=== PATIENT | male | born 1950 | race Caucasian/White ===

== ENCOUNTER 2025-09-16 16:16 | Emergency (ER) | payer OTHER ==
[~2025-09-16] VITALS: Ht 177.8 cm; Wt 59.7 kg
--- NOTE | 2025-09-16 16:31 | ECG ---
[facility] Test Date: 2025-09-16 Test Time: 16:29:36 Pat Name: SUSANA WILKS Department: ED Room: Gender: M [employer]: gp : 1950 Requested By: EMERGENCY EMERGENCY Order Number: [id number] Reading MD: Nba Fowler Measurements Intervals [place] Rate: 119 P: 73 [place]: 150 QRS: -11 QRSD: 93 T: -2 QT: 331 QTc: 466 Interpretive Statements Sinus tachycardia Borderline T abnormalities, inferior leads Electronically Signed On 09-22-2025 14:12:00 PDT by Nba Fowler Please click the below link to view image of tracing.
--- NOTE | 2025-09-16 16:41 | ED.PDOC ---
GI ASSESSMENT HPI Comments 74 y/o M, with PMHx of pancreatic cancer presents to the ED for CC of abdominal pain. Patient reports, he was relayed to the ED by his PCP for possible bowel obstruction d/t not having a bowel movement in [id number]. Patient relays, have associated symptoms of nausea and vomiting and c/o 10/10 diffuse abdominal pain. Patient denies fever, chills, melena, or hematemesis. No other symptoms or modifying factors are present at this time. Chief Complaint: Abdominal Pain Time Seen by MD: 16:35 Reviewed Notes: Nurses Notes, Medications, Allergies Allergies: Coded Allergies: Penicillins (Verified Allergy, Unknown, 09/16/25) Information Source: Patient Mode of Arrival: Ambulatory Timing: Days Duration: Since onset Prehospital treatment: None Vomitus: Watery Stool: Impaction Severity: Moderate Recent: None Recent Hx of: None Pain Location: Diffuse Modifying Factors: Nothing Associated sign and symptoms: Nausea, Vomiting, Constipation, Abdominal Pain Past Medical History PAST MEDICAL HISTORY: Denies Surgical History: Denies all surgeries Family History Family History: Unknown Social History Smoker: Non-Smoker Alcohol: Denies ETOH Use Drugs: Denies Drug Use Lives In: Home Constitutional: denies: chills, diaphoresis, fatigue, fever, malaise, sweats, weakness, others EENTM: denies: blurred vision, double vision, ear bleeding, ear discharge, ear drainage, ear pain, ear ringing, eye pain, eye redness, hearing loss, mouth pain, mouth swelling, nasal discharge, nose bleeding, nose congestion, nose pain, photophobia, tearing, throat pain, throat swelling, voice changes, others Respiratory: denies: cough, hemoptysis, orthopnea, SOB at rest, shortness of breath, SOB with excertion, stridor, wheezing, others Cardiovascular: denies: chest pain, dizzy spells, diaphoresis, Dyspnea on exertion, edema, irregular heart beat, left arm pain, lightheadedness, palpitations, PND, syncope, others Gastrointestinal: reports: abdominal pain, constipated, nausea; denies: abdomen distended, blood streaked bowels, diarrhea, dysphagia, difficulty swallowing, hematemesis, melena, poor appetite, poor fluid intake, rectal bleeding, rectal pain, vomiting, others Genitourinary: denies: burning, dysuria, flank pain, frequency, hematuria, incontinence, penile discharge, penile sore, pain, testicle pain, testicle swelling, urgency, others Neurological: denies: dizziness, fainting, headache, left sided numbness, left sided weakness, numbness, paresthesia, pre-existing deficit, right sided numbness, right sided weakness, seizure, speech problems, tingling, tremors, weakness, others Musculoskeletal: denies: back pain, gout, joint pain, joint swelling, muscle pain, muscle stiffness, neck pain, others Integumetry: denies: bruises, change in color, change in hair/nails, dryness, laceration, lesions, lumps, rash, wounds, others Allergic/Immunocompromised: denies: Difficulty Healing, Frequent Infections, Hives, Itching, others Hematologic/Lymphatic: denies: anemia, blood clots, easy bleeding, easy bruising, swollen glands, others Endocrine: denies: excessive hunger, excessive sweating, excessive thirst, excessive urination, flushing, intolerance to cold, intolerance to heat, unexplained weight gain, unexplained weight loss, others Psychiatric: denies: anxiety, bipolar disorder, depression, hopeless, panic disorder, schizophrenia, sleepless, suicidal, others All Other Systems: Reviewed and Negative Physical Exam General Appearance: Moderate Distress, Thin HEENT: Normal ENT Inspection, Pharynx Normal, TMs Normal Neck: Full Range of Motion, Non-Tender, Normal, Normal Inspection Respiratory: Chest Non-Tender, Lungs Clear, No Accessory Muscle Use, No Respiratory Distress, Normal Breath Sounds Cardiovascular: No Edema, No JVD, No Murmur, No Gallop, Normal Peripheral Pulses, Regular Rate/Rhythm Breast Exam: Deferred Gastrointestinal: Diffuse, No Organomegaly, No Pulsatile Mass, Normal Bowel Sounds, Soft, Tenderness Genitalia: Deferred Pelvic: Deferred Rectal: Deferred Extremities: No calf tenderness, Normal capillary refill, No pedal edema Musculoskeletal : Apperance: Normal Neurologic: Alert, 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 Was a procedure done?: No GI differential Dx Differential Diagnosis: Gastritis/PUD, Gastroenteritis, Bacterial, Viral X-Ray, Labs, Meds, VS Vital Signs Date Time Temp Pulse Resp B/P (MAP) Pulse Ox O2 Delivery O2 Flow Rate FiO2 09/16/25 16:42 119 09/16/25 16:29 119 09/16/25 16:18 97.9 123 16 168/116 95 97.9 Lab Test 09/16/25 17:02 Range/Units Sodium Level 139 136-145 mmol/L Potassium Level 3.8 3.5-5.1 mmol/L Chloride Level 101 98-107 mmol/L Carbon Dioxide Level 29 20-31 mmol/L Anion Gap 9 5-15 Blood Urea Nitrogen 8 L 9-23 mg/dL Creatinine 0.68 L 0.700-1.30 mg/dL Glomerular Filtration Rate Calc 99 >90 mL/min BUN/Creatinine Ratio 11.8 10.0-20.0 Serum Glucose 122 H 74-106 mg/dL Calcium Level 10.3 8.7-10.4 mg/dL Total Bilirubin 1.0 0.2-1.0 mg/dL Aspartate Amino Transferase (AST) 32 13-40 U/L Alanine Aminotransferase (ALT) 36 7-40 U/L Alkaline Phosphatase 193 H 46-116 U/L Total Protein 7.9 5.7-8.2 g/dL Albumin 4.5 3.2-4.8 g/dL Lipase 30 12-53 U/L CAT scan of the abdomen and pelvis shows: IMPRESSION: 1. Abnormal pancreatic body mass most likely compatible with a pancreatic adenocarcinoma measuring 4.1 x 5.9 cm. No pancreatic ductal dilation. Recommend follow-up MR versus CT pancreatic protocol. 2. Small volume ascites. Prostatomegaly. 3. Inconspicuous oval-shaped pulmonary nodules in the left lung base adjacent to the aorta measuring 1.3 cm and pulmonary metastasis not excluded. 4. Superimposed trace left-sided pleural effusion and possible infectious bronchiolitis. The chemistry panel is within normal limits. The patient is being admitted to the hospitalist The CBC is pending IV Hep-Lock was established The patient is given Zofran 4 mg IV push The patient is given Dilaudid 0.5 mg IV push Images Reviewed?: Images reviewed and evaluated by me Time of 1ST Reevaluation: 17:05 Reevaluation 1ST: Unchanged Patient Education/Counseling: Diagnosis, Treatment, Prognosis Family Education/Counseling: No Family Present SEPSIS Sepsis Screen Date sepsis recognized/suspect: Sep 16, 2025 Time Sepsis recognized/suspect: 1621 Recent Procedure: No On Antibiotic Therapy: No Respiratory Rate >20: No Heart Rate >90: Yes Temp<36 C (96.8 F) or >38.3 C: No SBP <90 or MAP <65 mmHG: No New Acute Mental Status Change: No Is the patient on CPAP, BIPAP,: No Physician Orders Ct Ab Pel Wo Con-No Oral Or Iv (09/16/25 16:35) Heplock Iv (09/16/25 16:35) Vital Signs Date Time Temp Pulse Resp B/P (MAP) Pulse Ox O2 Delivery O2 Flow Rate FiO2 09/16/25 16:42 119 09/16/25 16:29 119 09/16/25 16:18 97.9 123 16 168/116 95 97.9 Departure 1 Departure Time of Disposition: 18:00 Impression: Primary Impression: Intractable abdominal pain Additional Impressions: Pancreatic cancer Qualified Codes: C25.9 - Malignant neoplasm of pancreas, unspecified Intractable vomiting Disposition: ADMITTED INPATIENT Admit to: Med Surg Condition: Fair Critical Care Note Critical Care Time?: No Stability Stability form required: Yes Unstable for transfer: ED Physician Assesment (Clinical assesment) Heart Score Heart Score: Heart Score Response (Comments) Value History N/A 0 EKG N/A 0 Age N/A 0 Risk Factors N/A 0 Troponin N/A 0 Total 0 I personally scribed for GITA RIVAS MD ([email or web address]) on 09/16/25 at 16:41. Electronically submitted by Nelly Rey ([email or web address]). I personally scribed for GITA RIVAS MD ([email or web address]) on 09/16/25 at 16:42. Electronically submitted by Nelly Rey ([email or web address]). GITA RIVAS MD Sep 16, 2025 16:41
--- NOTE | 2025-09-16 17:44 | DVH ---
EXAM: CT CT AB PEL WO CON-NO ORAL OR IV INDICATION: PAIN TECHNIQUE: Volumetric multidetector CT images of the abdomen and pelvis were obtained without contras t. All CT scans at this facility use dose modulation, iterative reconstruction, and/or weight based d osing when appropriate to reduce radiation dose to as low as reasonably achievable. COMPARISON: CT CHEST/ABDOMEN/PELVIS STORAGE OF OUTSIDE FILMS on DOS: 03/28/25 FINDINGS: [LOWER CHEST]: Trace left-sided pleural effusion. Areas of infectious bronchiolitis in the right midd le lobe and anterior basilar segment, right lower lobe. The cardiac size is normal without pericardia l effusion. Small 8 mm oval-shaped pulmonary nodule in the right lung base. Additional inconspicuous oval-shaped pulmonary nodules in the left lung base adjacent to the aorta measuring 1.3 cm and pulmo nary metastasis not excluded [LIVER]: Normal hepatic size without suspicious focal lesion. [GALLBLADDER AND BILIARY TREE]: No cholelithiasis. [SPLEEN]: Unremarkable. [PANCREAS]: Abnormal pancreatic body mass measuring 4.1 x 5.9 cm. No pancreatic ductal dilation. Octaviano mmend follow-up MR versus CT pancreatic protocol. [ADRENAL GLANDS]: Unremarkable [KIDNEYS]: No hydronephrosis. No nephroureterolithiasis. Benign appearing renal cysts, compatible wit h Bosniak type I cyst. No imaging follow-up required. [BLADDER]: Unremarkable for the degree distention. [REPRODUCTIVE ORGANS]: Moderate to severe prostatomegaly [BOWEL/MESENTERY]: Stomach is normal. No CT evidence of bowel obstruction. mild stool burden. [ASCITES]: Small volume ascites [LYMPHADENOPATHY]: No pathologically enlarged lymph nodes by CT size criteria [VASCULATURE]: No aneurysmal dilatation. [ABDOMINAL WALL]: Unremarkable. [MUSCULOSKELETAL]: No acute fracture or aggressive focal osseous lesion. Multifocal degenerative rosario ge of the visualized spine. IMPRESSION: 1. Abnormal pancreatic body mass most likely compatible with a pancreatic adenocarcinoma measuring 4. 1 x 5.9 cm. No pancreatic ductal dilation. Recommend follow-up MR versus CT pancreatic protocol. 2. Small volume ascites. Prostatomegaly. 3. Inconspicuous oval-shaped pulmonary nodules in the left lung base adjacent to the aorta measuring 1.3 cm and pulmonary metastasis not excluded. 4. Superimposed trace left-sided pleural effusion and possible infectious bronchiolitis.
[2025-09-16 17:54] LABS: Alanine Aminotransferase 36 U/L (7-40); Albumin 4.5 g/dL (3.2-4.8); Alkaline Phosphatase 193 U/L (46-116); Anion Gap 9 (5-15); BUN/Creatinine Ratio 11.8 (10.0-20.0); Bilirubin, Total 1.0 mg/dL (0.2-1.0); Blood Urea Nitrogen 8 mg/dL (9-23); Calcium 10.3 mg/dL (8.7-10.4); Carbon Dioxide 29 mmol/L (20-31); Chloride 101 mmol/L (98-107); Glucose 122 mg/dL (74-106); Lipase 30 U/L (12-53); Potassium 3.8 mmol/L (3.5-5.1); Sodium 139 mmol/L (136-145); Total Protein 7.9 g/dL (5.7-8.2)
[2025-09-16] MEDS: HYDROmorphone HCL 2 MG/ML VL/or syr IV ONE (18:09)
[2025-09-16] MEDS: ONDANSETRON HCL 4 MG/2 ML VIAL IV ONE ×2 (18:15→21:33)
[2025-09-16] MEDS: SODIUM CHLORIDE 0.9% 500 ML IVB ONE (18:16)
[2025-09-16 18:48] LABS: Hematocrit 38.9 % (41.0-53.0); Hemoglobin 13.4 g/dL (13.5-17.5); Mean Corpuscular Hemoglobin 32.5 pg (28.0-32.0); Mean Corpuscular Volume 94.2 fL (80.0-100.0); Nucleated Red Blood Cells % 0.0 %
[2025-09-16] MEDS ORDERED: ONDANSETRON HCL 4 MG/2 ML VIAL IV PRN (21:15)
[2025-09-16 21:29] VITALS: TEMP 98.3
[2025-09-16] MEDS: SODIUM CHLORIDE 0.9% 1,000 ML IV ONE (21:33)
[2025-09-16] MEDS: KETOROLAC TROMETH 30 MG/ML 1ML VIAL IV ONE (21:33)
[2025-09-16] MEDS ORDERED: HYDROcodone-ACET 10/325MG TAB PO PRN (22:15)
[2025-09-16] MEDS ORDERED: BISA10SU45 RE (22:20)
[2025-09-16] MEDS: LABETALOL HCL 20 MG/4 ML VL IV ONE (22:28)
[2025-09-16] MEDS: LABETALOL HCL 20 MG/4 ML VL IV PRN (22:30)
[2025-09-16 23:03] VITALS: BP 137/89; PULSE 97; RESP 16; O2SAT 95
--- NOTE | 2025-09-18 00:23 | DVHINCON2 ---
DATE OF CONSULTATION: 09/16/2025 This is a late note entry. CHIEF COMPLAINT: Coming in for abdominal pain and constipation. HISTORY OF PRESENT ILLNESS: This is a 74-year-old male with significant past medical history for pancreatic cancer stage 4, chronic left pleural effusion, left pulmonary nodules, who is currently on chemotherapy at [facility], seeing Pain Management due to chronic abdominal pain secondary to pancreatic cancer, who presents to the Emergency Room with [id number] left upper quadrant epigastric region abdominal pain. The patient also feels that he has had some constipation for the last 6-7 days without any bowel movements. He is currently still passing gas. The patient says he has had some nausea and vomiting symptoms for the past week. He does have Zofran at home. He recently seen his Pain Management doctor who doubled his fentanyl patch dosing yesterday and his constipation medication Relistor was changed to Movantik, which the patient just picked up the prior day and has not started yet on. The patient is coming in due to more pain in the left upper quadrant epigastric area, which he has had for quite a while. He has been on chemotherapy for, he says, about 10 months now. The patient also has had very poor appetite. He says with the chronic pain medications that he is currently on to include fentanyl 25 mcg, methadone 10 mg twice a day, and [place] 10/325 mg 3 times a day, he has been sleeping most of the time. He has not been eating much food. He denies any chest pressure or shortness of breath. He does have some worsening pain when he does take deep inspirations and otherwise no bloody or tarry stools; no urinary frequency, urgency, or burning sensation symptoms. PAST MEDICAL HISTORY: Stage 4 pancreatic cancer. PAST SURGICAL HISTORY: Denies any prior surgeries. SOCIAL HISTORY: No tobacco, no alcohol, no illicit drugs. MEDICATIONS AT HOME: To include again methadone 10 mg twice a day, fentanyl 25 mcg 1 patch daily, [place] 10/325 mg t.i.d., Movantik, Senokot/Colace, and lactulose 30 mL 3 times a day. MEDICATION ALLERGIES: TO PENICILLIN. REVIEW OF SYSTEMS: A 10-point review of systems was covered with the patient and was negative with exception to what was present in history of present illness. PHYSICAL EXAMINATION: VITAL SIGNS: Temp of 98.3, pulse rate of 121, respiratory rate of 18, blood pressure 149/106, pulse ox of about 95% on room air. GENERAL: Seems to be alert and oriented x4, in no acute distress, male, sitting up in a chair. HEENT: Normocephalic, atraumatic. Extraocular muscles are intact. Pupils are equally round, reactive to light and accommodation. Mucous membranes look dry. CARDIOVASCULAR: S1 and S2 positive. Tachycardic rhythm. No rubs, gallops or murmurs. LUNGS: Slightly diminished breath sounds in the left posterior base. No wheezing or rhonchi or rales appreciated. ABDOMEN: Seems to be soft. Some tenderness elicited in the epigastric left upper quadrant region. Otherwise, no guarding, no rebound, no abdominal rigidity. EXTREMITIES: Lower extremities without lower extremity edema, clubbing, or cyanosis. NEUROLOGIC: No focal deficits. Cranial nerve testing 2-12 overall seems to be intact. LABORATORY WORKUP: Showed a white count of 7.6, H and H of 13.4 and 38.9, platelet count of 290,000. There is no neutrophil shift. Sodium 139, potassium 3.8, chloride 101, carbon dioxide 29, BUN 8, creatinine 0.68, calcium 10.3, total bilirubin 1.0, AST of 32, ALT of 36, alkaline phosphatase 193, total protein 7.9, lipase of 30. IMAGING: CT abdomen and pelvis was completed. Impression: Shows abnormal pancreatic body mass, most likely compatible with pancreatic adenocarcinoma measuring about 4.1 x 5.9 cm. No pancreatic ductal dilation. Recommend followup MR versus CT pancreatic protocol. Small volume ascites, prostatomegaly, inconspicuous oval-shaped pulmonary nodules in the left lung base adjacent to the aorta measuring 1.3 cm and pulmonary metastasis not excluded. Superimposed trace left-sided pleural effusion and possible infectious bronchiolitis. DIAGNOSES: * Chronic abdominal pain. * Opioid-induced constipation. * Pancreatic cancer stage 4. * Left lung pulmonary nodule. PLAN: The patient was assessed in the Emergency Room. Full evaluation was completed. The patient is presenting with intractable abdominal pain and currently on multimodal medication with methadone, fentanyl, and [place] for pain control. Recently has his fentanyl increased by his Pain Management in the last 24 hours and was informed to give it 24 hours for the additional dose medication to kick in for better pain control. The patient did have a CT of the abdomen completed that shows the patient does not have any large retained stool or constipation findings. The patient is likely again having progression of his cancer leading to his pain and he does likely have some constipation underlying, but not significantly seen on his CT imagings that were done today. He is on an aggressive bowel regimen with Senokot, Colace, and lactulose 3 times a day at home and recently was transitioned from Relistor to Movantik by his Pain provider contracting consultant. I additionally will give him Dulcolax 10 mg suppository p.r.n. daily as needed for additional constipation medication. The patient has been informed that he does not have much stool retention currently. The patient likely again has significant pain due to advancements of his cancer and he has not been eating much lately either per the patient as the patient's narcotic medication has been making him fairly drowsy throughout the day where he sleeps most of the time. I informed him after educating him about his findings on his CT to follow up with his oncologist and he has an appointment this coming up Monday to discuss a new PET scan that was completed. He already understands that his stage 4 pancreatic cancer is non-curable, but has not been told that this is likely terminal in which he will have a discussion with his oncologist in reference to this. Pain provider contracting consultant also has discussed with him possibly doing celiac plexus nerve block given that his pain is significant and that is another thing that he will be following up with and I have informed him to make an appointment as soon as possible in the next 7 days to discuss this with him. I gave him some Toradol IV, which helped improve his pain, which brought his heart rates back down and his blood pressure has also improved. The patient overall feels better. I told him to follow up with the consultants as discussed above. I will arrange him to see his PCP within 3-5 days and to make sure that he starts his Movantik medication that he recently picked up. The patient was also informed to return to the ER in case of intractable nausea, vomiting, uncontrolled abdominal pain, chest pain, shortness of breath, fevers, chills, or any other concerns and/or questions. [facility] Case Management will be in contact with the patient for his followup visits. Mario Sidhu MD LM/MARY TID: [id number] RECEIPT: [id number]
== END 2025-09-16 23:18 | disposition home or self-care (01) ==
LOC: ER 16:20
DX: C25.9 Malignant neoplasm of pancreas, unspecified (principal); R10.84 Generalized abdominal pain; R11.2 Nausea with vomiting, unspecified; Z88.0 Allergy status to penicillin
CPT/HCPCS: 36415; 74176; 80053; 83690; 85025; 93005; 96361; 96374; 96375; 96376; 99285; J1885; J2405; J7030; J7040